=== PATIENT | female | born 1935 | race Caucasian/White ===

== ENCOUNTER 2017-11-15 01:19 | Emergency (ER) | payer OTHER ==
[~2017-11-15] VITALS: Ht 180.3 cm; Wt 105.0 kg
[2017-11-15] MEDS ORDERED: FLEXERIL10 MG PO (02:29)
[2017-11-15 02:58] VITALS: BP 168/99
== END 2017-11-15 02:59 | disposition home or self-care (01) ==
LOC: EME 01:19
DX: M25.752 Osteophyte, left hip (principal); M48.061 Spinal stenosis, lumbar region without neurogenic claudication; I10 Essential (primary) hypertension; M54.42 Lumbago with sciatica, left side
CPT/HCPCS: 73502; 99281; 99284; J1100

== ENCOUNTER 2018-03-02 02:04 | Emergency (ER) | payer OTHER ==
[~2018-03-02] VITALS: Ht 180.3 cm; Wt 103.3 kg
[~2018-03-02 02:04] MED LIST: FLEXERIL10 MG PO
[2018-03-02 03:50] LABS: HEMOGLOBIN 12.7 G/DL (11.9-15.5); MCH 29.3 PG (29.0-34.0); MCHC 32.6 G/DL (30.0-36.0); MCV 89.9 FL (83-99); PLATELET COUNT 211 K/uL (156-360); RBC DIS.WIDTH-CV 13.7 % (11.8-14.6); RBC DIS.WIDTH-SD 45.3 % (39-53); RED BLOOD COUNT 4.34 M/uL (3.80-5.20); WHITE BLOOD COUNT 7.2 K/uL (4.1-10.2)
[2018-03-02 03:53] LABS: APPEARANCE CLEAR ((CLEAR)); BILIRUBIN NEGATIVE; BLOOD NEGATIVE; COLOR STRAW ((YELLOW)); GLUCOSE (STRIP) NEGATIVE; KETONES NEGATIVE; LEUKOCYTES NEGATIVE; NITRITE NEGATIVE; PROTEIN (STRIP) NEGATIVE; SPECIFIC GRAVITY 1.004 (1.000-1.030); UCUL ADDED? NO; UROBILINOGEN 0.2 MG/DL (0.2-1.0)
[2018-03-02 04:04] LABS: CHLORIDE 104 mEq/L (99-109); POTASSIUM 4.2 mEq/L (3.7-5.4); SODIUM 140 mEq/L (136-147)
[2018-03-02 04:06] LABS: GLUCOSE 107 mg/dL (70-99); TOTAL PROTEIN 6.9 g/dL (6.4-8.3)
[2018-03-02 04:08] LABS: TOTAL BILIRUBIN 0.4 mg/dL (0.0-1.0)
[2018-03-02 04:09] LABS: ALKALINE PHOSPHATASE 107 IU/L (3-129)
[2018-03-02 04:10] LABS: CREATININE 0.7 mg/dL (0.6-1.3); GFR ESTIMATE (CALCULATED) > 59 mL/min/
[2018-03-02 04:11] LABS: AST (GOT) 23 IU/L (2-34); UREA NITROGEN (BUN) 14 mg/dL (9-23)
[2018-03-02 04:13] LABS: ALT (GPT) 14 IU/L (3-49)
[2018-03-02 04:14] LABS: TROP-I INTERPRETATION NEGATIVE; TROPONIN-I < 0.01 ng/mL (0.0-0.30)
[2018-03-02] MEDS ORDERED: ZOFRAN4 MG PO (05:01)
[2018-03-02 05:11] LABS: LIPASE 22 U/L (1.0-51.0)
[2018-03-02 05:22] VITALS: BP 152/75
== END 2018-03-02 05:24 | disposition home or self-care (01) ==
LOC: EME 02:04
PROVIDERS: Emergency Medicine
DX: R11.0 Nausea (principal); M79.601 Pain in right arm; I48.91 Unspecified atrial fibrillation; Z79.01 Long term (current) use of anticoagulants; I10 Essential (primary) hypertension; K21.9 Gastro-esophageal reflux disease without esophagitis; G47.30 Sleep apnea, unspecified; Z85.9 Personal history of malignant neoplasm, unspecified
CPT/HCPCS: 71046; 80053; 81003; 83690; 84484; 85027; 93005; 99281; 99285; J2405; S0028